=== PATIENT | male | born 1945 | race Caucasian/White ===

== ENCOUNTER 2018-12-07 11:55 | Observation (INO) | payer OTHER ==
[2018-12-07] MEDS ORDERED: dilTIAZem HCl 25 MG/5 ML VIAL IV ONE (12:23)
[2018-12-07 12:32] LABS: Absolute Lymphocytes (CBC) 1.6 K/uL (0.7-4.9); Absolute Monocytes 0.6 K/uL (0.1-1.3); Absolute Neutrophil 4.8 K/uL (1.8-8.0); Basophils % 1.1 % (0-1.3); Eosinophils % 4.7 % (0-4.4); Hematocrit 43.4 % (39.6-49.0); Lymphocytes % 21.7 % (15.3-44.8); MPV 10.6 fL (7.6-11.3); Monocytes % 8.2 % (3.3-12.3); RBC Red Blood Cell Count 4.38 M/uL (4.33-5.43)
[2018-12-07 12:33] LABS: Protime INR 0.89
--- NOTE | 2018-12-07 12:40 | RAD REPORT ---
EXAM DESCRIPTION: RAD - Chest Single View - 12/07/2018 12:34 pm CLINICAL HISTORY: CHEST PAIN Chest pain. COMPARISON: CHEST PA AND LAT 2 VIEW dated 09/13/2013; CHEST PA AND LAT 2 VIEW dated 11/04/2004 FINDINGS: Portable technique limits examination quality. Mild elevation of the left hemidiaphragm is seen with linear atelectasis in left lung base. The lungs are otherwise clear. The heart is mildly prominent size with sternotomy wires present. No displaced fractures. IMPRESSION: No acute intrathoracic process suspected.
[2018-12-07 12:49] LABS: Albumin 3.6 g/dL (3.4-5.0); Bilirubin Direct 0.1 mg/dL (0-0.2); Bilirubin Total 0.7 mg/dL (0.2-1.0); Magnesium 1.7 mg/dL (1.8-2.4); Potassium 4.2 mmol/L (3.5-5.1); Protein, Total 7.1 g/dL (6.4-8.2); Troponin (Emerg Dept Use Only) 0.3 ng/mL (0.0-0.045)
[2018-12-07] MEDS ORDERED: HEPARIN/D5W 25,000 UNIT/500 ML BAG IV ONE (12:53)
--- NOTE | 2018-12-07 13:24 | EKG ---
Test Date: 2018-12-07 Test Time: 12:18:14 Associate Professor Of Library Media: [place]ISH MEASUREMENT RESULTS: Intervals: Rate: 91 [place]: QRSD: 108 QT: 386 QTc: 474 [place]: P: 259 [place]: QRS: 40 T: 152 INTERPRETIVE STATEMENTS: Atrial flutter with variable AV block ST & T wave abnormality, consider lateral ischemia Prolonged QT Abnormal ECG Compared to ECG 12/07/2018 12:15:19 Ventricular premature complex(es) no longer present ST (T wave) deviation still present Possible ischemia still present Electronically Signed On 12-07-18 13:23:42 POSTDOCTORAL SCHOLAR by Benjamin Marsh
--- NOTE | 2018-12-07 13:24 | EKG ---
Test Date: 2018-12-07 Test Time: 12:15:19 Meat Sales And Storage Manager: [place] MEASUREMENT RESULTS: Intervals: Rate: 98 [place]: QRSD: 106 QT: 366 QTc: 467 [place]: P: [place]: QRS: 37 T: 153 INTERPRETIVE STATEMENTS: Atrial flutter with variable AV block with premature ventricular or aberrantly conducted complexes ST & T wave abnormality, consider inferolateral ischemia Prolonged QT Abnormal ECG Compared to ECG 12/07/2018 12:10:47 Ventricular premature complex(es) now present Prolonged QT interval now present ST (T wave) deviation still present Possible ischemia still present Electronically Signed On 12-07-18 13:23:46 NUTRITION HELPER by Benjamin Marsh
--- NOTE | 2018-12-07 13:24 | EKG ---
Test Date: 2018-12-07 Test Time: 12:10:47 Chemical Compounder Helper: [place] MEASUREMENT RESULTS: Intervals: Rate: 113 [place]: QRSD: 102 QT: 352 QTc: 482 [place]: P: [place]: QRS: 35 T: 161 INTERPRETIVE STATEMENTS: Atrial flutter with variable AV block ST & T wave abnormality, consider inferior ischemia ST & T wave abnormality, consider anterolateral ischemia Abnormal ECG Compared to ECG 12/07/2018 12:07:57 ST (T wave) deviation now present Atrial fibrillation no longer present Myocardial infarct finding no longer present T-wave abnormality no longer present Possible ischemia still present Electronically Signed On 12-07-18 13:23:51 MATTRESS STUFFER by Benjamin Marsh
--- NOTE | 2018-12-07 13:25 | EKG ---
Test Date: 2018-12-07 Test Time: 12:07:57 Feather Duster Winder: [place] MEASUREMENT RESULTS: Intervals: Rate: 126 [place]: QRSD: 100 QT: 340 QTc: 492 [place]: P: [place]: QRS: 40 T: 175 INTERPRETIVE STATEMENTS: Atrial flutter Inferior infarct cited previously Consider right ventricular involvement in acute inferior infarct Abnormal ECG Compared to ECG 12/07/2018 12:07:33 T-wave abnormality now present Possible ischemia now present ST (T wave) deviation no longer present Electronically Signed On 12-07-18 13:24:53 SPORTS OFFICIAL by Benjamin Marsh
--- NOTE | 2018-12-07 13:25 | EKG ---
Test Date: 2018-12-07 Test Time: 12:07:33 Supervisor Photoengraving: [place] MEASUREMENT RESULTS: Intervals: Rate: 120 [place]: QRSD: 106 QT: 348 QTc: 491 [place]: P: [place]: QRS: 42 T: 172 INTERPRETIVE STATEMENTS: Atrial flutter with variable AV block ST elevation, consider inferior injury or acute infarct ACUTE CA Consider right ventricular involvement in acute inferior infarct Abnormal ECG Compared to ECG 11/04/2004 13:54:00 ST (T wave) deviation now present Myocardial infarct finding now present Myocardial infarct finding now present Sinus rhythm no longer present T-wave abnormality no longer present Possible ischemia no longer present Electronically Signed On 12-07-18 13:25:00 CHEESE COOKER by Benjamin Marsh
[2018-12-07] MEDS ORDERED: ASPIRIN 81 MG CHEWABLE TABLET ONE (13:28)
--- NOTE | 2018-12-07 13:40 | ER ---
Nurse's Notes [facility] Name: Serafin Beltrán Age: 73 yrs Sex: Male : 1945 Arrival Date: 12/07/2018 Time: 11:57 Bed 4 Private MD: Diagnosis: Chest pain;NSTEMI;Atrial Fibrillation with RVR Presentation: 12/07 12:00 Presenting complaint: Patient states: He was picking up a bag of bird feed an hour and aj1 15 minutes ago when he started to have substernal chest pain that radiates to the back, dizziness, weakness, shortness of breath and palpitations. Denies cough or recent illness. Transition of care: patient was not received from another setting of care. Onset of symptoms was December 07, 2018 at 10:45. Risk Assessment: Do you want to hurt yourself or someone else? Patient reports no desire to harm self or others. Initial Sepsis Screen: Does the patient meet any 2 criteria? HR > 90 bpm. No. Patient's initial sepsis screen is negative. Does the patient have a suspected source of infection? No. Patient's initial sepsis screen is negative. Care prior to arrival: None. 12:00 Method Of Arrival: Wheelchair aj1 12:00 Acuity: CRISTOBAL 2 aj1 Triage Assessment: 12:00 General: Appears in no apparent distress. uncomfortable, Behavior is calm, cooperative, aj1 appropriate for age. Pain: Complains of pain in mid-sternal area. Cardiovascular: Patient's skin is warm and dry. Rhythm is atrial fibrillation with rapid ventricular response. Historical: - Allergies: 12:26 No Known Allergies; aj1 - Home Meds: 12:26 BP med [Active]; gabapentin oral oral [Active]; Celebrex Oral [Active]; aj1 - PMHx: 12:26 Hypertension; neuropathy; double bypass; cardiac stent; aj1 - Immunization history:: Flu vaccine is up to date. - Social history:: Smoking status: Patient/guardian denies using tobacco. - Ebola Screening: : Patient denies travel to an Ebola-affected area in the 21 days before illness onset. Screenin:35 Abuse screen: Denies threats or abuse. Denies injuries from another. Nutritional aj1 screening: No deficits noted. Tuberculosis screening: No symptoms or risk factors identified. 15:13 Fall Risk No fall in past 12 months (0 pts). No secondary diagnosis (0 pts). IV access aj1 (20 points). Ambulatory Aid- None/Bed Rest/Nurse Assist (0 pts). Gait- Normal/Bed Rest/Wheelchair (0 pts) Mental Status- Oriented to own ability (0 pts). Total Catherine Fall Scale indicates No Risk (0-24 pts). Assessment: 12:00 General: Appears in no apparent distress. uncomfortable, Behavior is calm, cooperative, aj1 appropriate for age. 12:00 Pain: Complains of pain in mid-sternal area Pain radiates to back Pain currently is 6 aj1 out of 10 on a pain scale. Quality of pain is described as aching, Pain began 1 hour ago. Pain: Aggravated by increased activity. Neuro: Level of Consciousness is awake, alert, obeys commands, Oriented to person, place, time, situation. Cardiovascular: Reports chest pain, lightheadedness, nausea, palpitations, shortness of breath, Heart tones S1 S2 present Murmur present Patient's skin is warm and dry. Rhythm is atrial fibrillation with rapid ventricular response. Respiratory: Airway is patent Respiratory effort is even, unlabored, Respiratory pattern is regular, symmetrical, Breath sounds are clear bilaterally. GI: No signs and/or symptoms were reported involving the gastrointestinal system. : No signs and/or symptoms were reported regarding the genitourinary system. EENT: No signs and/or symptoms were reported regarding the EENT system. Derm: No signs and/or symptoms reported regarding the dermatologic system. Skin is pink, warm \T\ dry. normal. 12:22 Reassessment: Patient states that he is feeling better, his symptoms have now resolved. aj1 Patient is in Afib with a rate in the 80's and 90's. 13:00 Reassessment: Patient appears in no apparent distress at this time. Patient and/or aj1 family updated on plan of care and expected duration. Pain level reassessed. Patient is alert, oriented x 3, equal unlabored respirations, skin warm/dry/pink. Patient states feeling better. Patient states symptoms have improved. 14:00 Reassessment: Patient and/or family updated on plan of care and expected duration. Pain aj1 level reassessed. General: Appears in no apparent distress. comfortable, Behavior is calm, cooperative, appropriate for age. Pain: Denies pain. Neuro: Level of Consciousness is awake, alert, obeys commands, Oriented to person, place, time, situation. Cardiovascular: Heart tones S1 S2 present Patient's skin is warm and dry. Respiratory: Airway is patent Respiratory effort is even, unlabored, Respiratory pattern is regular, symmetrical. Derm: No signs and/or symptoms reported regarding the dermatologic system. Skin is pink, warm \T\ dry. normal. 15:13 Reassessment: Patient appears in no apparent distress at this time. No changes from aj1 previously documented assessment. Patient and/or family updated on plan of care and expected duration. Pain level reassessed. Patient is alert, oriented x 3, equal unlabored respirations, skin warm/dry/pink. Vital Signs: 12:00 BP 148 / 67; Pulse 130; Resp 22; Temp 97.4; Pulse Ox 97% on R/A; Weight 84.37 kg (R); aj1 Height 5 ft. 10 in. (177.80 cm) (R); Pain 5/10; 12:18 BP 167 / 63; Pulse 91; Resp 18 S; Pulse Ox 98% on R/A; iw 12:35 BP 144 / 60; Pulse 72; Resp 16; Pulse Ox 98% on R/A; aj1 13:00 BP 133 / 53; Pulse 73 MON; Resp 18; Pulse Ox 98% on R/A; aj1 13:31 BP 162 / 56; Pulse 73; Resp 13; Pulse Ox 97% on R/A; aj1 14:00 BP 145 / 50; Pulse 73; Resp 18; Pulse Ox 98% on R/A; aj1 14:30 BP 150 / 62; Pulse 75; Resp 16; Pulse Ox 97% on R/A; aj1 15:09 BP 148 / 46; Pulse 74; Resp 17; Pulse Ox 97% on R/A; aj1 12:00 Body Mass Index 26.69 (84.37 kg, 177.80 cm) aj1 13:00 Sinus Rhythm aj1 13:31 Sinus Rhythm aj1 ED Course: 11:57 Patient arrived in ED. rg4 12:00 Arm band placed on Patient placed in an exam room. aj1 12:03 Junito Aguilar MD is Attending Physician. ps1 12:17 Initial lab(s) drawn, by me, sent to lab. Inserted saline lock: 20 gauge in right hj antecubital area, using aseptic technique. Blood collected. 12:18 Inserted saline lock: 18 gauge in left antecubital area, using aseptic technique. iw 12:22 Eliana Raya, RN is Primary Nurse. aj1 12:22 EKG done, by radio/tv technician. reviewed by Junito Aguilar MD. at1 12:24 Triage completed. aj1 12:33 X-ray completed. Portable x-ray completed in exam room. Patient tolerated procedure jb2 well. 12:35 No provider procedures requiring assistance completed. Patient maintains SpO2 aj1 saturation greater than 95% on room air. 12:35 Patient has correct armband on for positive identification. athletic monitor on. Pulse aj1 ox on. NIBP on. 12:36 XRAY Chest (1 view) In Process Unspecified. EDMS 13:00 EKG done, by radio/tv technician. reviewed by Junito Aguilar MD repeat EKG. at1 13:37 Fritz Dodge DO is Hospitalizing Provider. ps1 15:10 Patient admitted, IV remains in place. aj1 15:13 Report given to DEIDRE Nicole on 4th floor. aj1 Administered Medications: 12:11 Drug: Cardizem 10 mg Route: IVP; Site: right antecubital; aj1 12:22 Follow up: Response: No adverse reaction; Marked relief of symptoms aj1 12:49 Drug: Heparin ([place]-Bolus with thrombolytic) - HEParin 60 units/kg {Co-Signature: aj1 iw (Eliana Raya RN).} Route: IVP; Site: right antecubital; 13:30 Follow up: Response: No adverse reaction aj1 12:49 Drug: Heparin ([place] Drip) 12 units/kg/hr - (HEParin 70657 units, D5W 500 ml) iw {Co-Signature: aj1 (Eliana Raya RN).} Route: IV; Rate: calculated rate; Site: right antecubital; 15:15 Follow up: IV Status: Infusion continued upon admission aj1 13:24 Drug: Aspirin 325 mg Route: PO; aj1 14:30 Follow up: Response: No adverse reaction aj1 Outcome: 13:39 Decision to Hospitalize by Provider. ps1 15:13 Admitted to Tele accompanied by tech, via wheelchair, with chart. aj1 15:13 Condition: stable 15:13 Discharge instructions given to patient, Instructed on the need for admit, Demonstrated understanding of instructions. 15:21 Patient left the ED. aj1 Signatures: Dispatcher [employer] Eliana Salgado, DEIDRE RN aj1 Jaylen Bhakta jb2 Linda Lawrence RN RN iw Hali Fitzgerald, rolls mill operator EKG Tat1 Zeb Lee RN RN hj Garcia, Rubi rg4 Junito Aguilar MD MD ps1 Eliana Raya RN aj1
--- NOTE | 2018-12-07 13:40 | EDPHYS ---
Physician Documentation [facility] Name: Serafin Beltrán Age: 73 yrs Sex: Male : 1945 Arrival Date: 12/07/2018 Time: 11:57 Bed 4 Private MD: ED Physician Junito Aguilar HPI: 12/07 12:19 This 73 yrs old Male presents to ER via Unassigned with complaints of Chest ps1 Pain, Weakness. 12:19 patient was lifting a bag of birdfeed and developed CP, tightness, palpitations, and ps1 SOB. He has a history of CABG and stenting by [facility]. Pain is substernal, Non-radiating. Rated as moderate and improving. No history of afib. . Historical: - Allergies: 12:26 No Known Allergies; aj1 - Home Meds: 12:26 BP med [Active]; gabapentin oral oral [Active]; Celebrex Oral [Active]; aj1 - PMHx: 12:26 Hypertension; neuropathy; double bypass; cardiac stent; aj1 - Immunization history:: Flu vaccine is up to date. - Social history:: Smoking status: Patient/guardian denies using tobacco. - Ebola Screening: : Patient denies travel to an Ebola-affected area in the 21 days before illness onset. ROS: 12:19 Constitutional: Negative for fever, chills, and weight loss, Eyes: Negative for injury, ps1 pain, redness, and discharge. 12:19 Abdomen/GI: Negative for abdominal pain, nausea, vomiting, diarrhea, and constipation, MS/Extremity: Negative for injury and deformity, Skin: Negative for injury, rash, and discoloration, Neuro: Negative for headache, weakness, numbness, tingling, and seizure. 12:19 Cardiovascular: Positive for chest pain, palpitations. 12:19 Respiratory: Positive for shortness of breath. Exam: 12:18 Respiratory: Lungs have equal breath sounds bilaterally, clear to auscultation and ps1 percussion. No rales, rhonchi or wheezes noted. No increased work of breathing, no retractions or nasal flaring. Abdomen/GI: Soft, non-tender, with normal bowel sounds. No distension or tympany. No guarding or rebound. No evidence of tenderness throughout. Skin: Warm, dry with normal turgor. Normal color with no rashes, no lesions, and no evidence of cellulitis. MS/ Extremity: Pulses equal, no cyanosis. Neurovascular intact. Full, normal range of motion. Neuro: Awake and alert, GCS 15, oriented to person, place, time, and situation. Cranial nerves II-XII grossly intact. Sensory grossly intact. Psych: Awake, alert, with orientation to person, place and time. Behavior, mood, and affect are within normal limits. 12:19 Constitutional: This is a well developed, well nourished patient who is awake, alert, ps1 and in no acute distress. Head/Face: Normocephalic, atraumatic. Eyes: Pupils equal round and reactive to light, extra-ocular motions intact. Lids and lashes normal. Conjunctiva and sclera are non-icteric and not injected. 12:19 Chest/axilla: Inspection: scar from midline sternotomy. 12:19 Cardiovascular: Rate: tachycardic, Rhythm: irregularly irregular, Pulses: no pulse deficits are appreciated, Edema: is not appreciated. Vital Signs: 12:00 BP 148 / 67; Pulse 130; Resp 22; Temp 97.4; Pulse Ox 97% on R/A; Weight 84.37 kg (R); aj1 Height 5 ft. 10 in. (177.80 cm) (R); Pain 5/10; 12:18 BP 167 / 63; Pulse 91; Resp 18 S; Pulse Ox 98% on R/A; iw 12:35 BP 144 / 60; Pulse 72; Resp 16; Pulse Ox 98% on R/A; aj1 13:00 BP 133 / 53; Pulse 73 MON; Resp 18; Pulse Ox 98% on R/A; aj1 13:31 BP 162 / 56; Pulse 73; Resp 13; Pulse Ox 97% on R/A; aj1 14:00 BP 145 / 50; Pulse 73; Resp 18; Pulse Ox 98% on R/A; aj1 14:30 BP 150 / 62; Pulse 75; Resp 16; Pulse Ox 97% on R/A; aj1 15:09 BP 148 / 46; Pulse 74; Resp 17; Pulse Ox 97% on R/A; aj1 12:00 Body Mass Index 26.69 (84.37 kg, 177.80 cm) aj1 13:00 Sinus Rhythm aj1 13:31 Sinus Rhythm aj1 MDM: 12:29 Patient medically screened. ps1 13:40 Data reviewed: vital signs, nurses notes, lab test result(s), EKG, radiologic studies, ps1 and as a result, I will admit patient. Data interpreted: cafeteria monitor: rhythm is atrial fibrillation, atrial flutter. Medication response: cardizem, rate controlled. Physician consultation: Benjamin Marsh MD does not want to cath patient at this time. POC to admit patient on heparin and will plan for cardioversion tomorrow. . ED course: Original EKG demonstrated ST elevation in one lead. Patient was in Afib RVR and was slowed with cardizem. Repeat EKG's demonstrated flutter with no ST elevation and non-specific ST changes. Patient was heparinized and given ASA. Stable and rate controlled. Pain improved. Admitted to medicine. 12/07 12:11 Order name: Basic Metabolic Panel; Complete Time: 12:56 ps1 12/07 12:11 Order name: CBC with Diff; Complete Time: 12:37 ps1 12/07 12:11 Order name: LFT's; Complete Time: 12:56 ps1 12/07 12:11 Order name: Magnesium; Complete Time: 12:56 ps1 12/07 12:11 Order name: NT PRO-BNP; Complete Time: 12:56 ps1 12/07 12:11 Order name: PT-INR; Complete Time: 12:41 ps1 12/07 12:11 Order name: Troponin (emerg Dept Use Only); Complete Time: 12:56 ps1 12/07 12:11 Order name: XRAY Chest (1 view); Complete Time: 12:41 ps1 12/07 12:11 Order name: EKG; Complete Time: 12:13 ps1 12/07 13:09 Order name: EKG Electrocardiogram EDWI 12/07 12:11 Order name: Cardiac monitoring; Complete Time: 12:38 ps1 12/07 12:11 Order name: EKG - Nurse/Tech; Complete Time: 12:38 ps1 12/07 12:11 Order name: IV Saline Lock; Complete Time: 12:38 ps1 12/07 12:11 Order name: Labs collected and sent; Complete Time: 12:38 ps1 12/07 12:11 Order name: O2 Per Protocol; Complete Time: 12:38 ps1 12/07 12:11 Order name: O2 Sat Monitoring; Complete Time: 12:38 ps1 12/07 13:09 Order name: EKG Electrocardiogram EDMS 12/07 13:09 Order name: EKG Electrocardiogram EDMS 12/07 13:09 Order name: EKG Electrocardiogram EDMS 12/07 13:47 Order name: NPO EDMS 12/07 13:48 Order name: EKG Electrocardiogram EDMS 12/07 13:48 Order name: EKG Electrocardiogram EDMS 12/07 13:48 Order name: EKG Electrocardiogram EDMS 12/07 13:48 Order name: EKG Electrocardiogram EDMS EC:07 Rate is 126 beats/min. Rhythm is irregularly irregular. QRS [place] is Normal. QRS ps1 interval is normal. QT interval is prolonged. No Q waves. T waves are Normal. ST Segment is elevated in lead II, 1-2mm. ST Segment is depressed in leads V3, V4, V5. Clinical impression: atrial fibrillation with rapid ventricular response. Non-specific ST wave abnormalities. Interpreted by me. 12:18 Rate is 91 beats/min. Rhythm is irregularly irregular. QRS [place] is Normal. QRS interval ps1 is normal. QT interval is normal. No Q waves. T waves are Normal. ST Segment is depressed in lead V3. Clinical impression: Atrial flutter with 2:1. No ST elevation. Non-specific ST changes. . Interpreted by me. Administered Medications: 12:11 Drug: Cardizem 10 mg Route: IVP; Site: right antecubital; aj1 12:22 Follow up: Response: No adverse reaction; Marked relief of symptoms aj1 12:49 Drug: Heparin ([place]-Bolus with thrombolytic) - HEParin 60 units/kg {Co-Signature: aj1 iw (Eliana Raya RN).} Route: IVP; Site: right antecubital; 13:30 Follow up: Response: No adverse reaction aj1 12:49 Drug: Heparin ([place] Drip) 12 units/kg/hr - (HEParin 15567 units, D5W 500 ml) iw {Co-Signature: aj1 (Eliana Raya RN).} Route: IV; Rate: calculated rate; Site: right antecubital; 15:15 Follow up: IV Status: Infusion continued upon admission aj1 13:24 Drug: Aspirin 325 mg Route: PO; aj1 14:30 Follow up: Response: No adverse reaction aj1 Disposition: 13:40 Critical Care:. ps1 Disposition: 12/07/18 13:39 Hospitalization ordered by Fritz Dodge for Inpatient Admission. Preliminary diagnosis are Chest pain, NSTEMI, Atrial Fibrillation with RVR. - Bed requested for Telemetry/MedSurg (Inpatient). - Status is Inpatient Admission. aj1 - Condition is Fair. - Problem is new. - Symptoms have improved. UTI on Admission? No Critical care time excluding procedures: 13:40 Critical care time: Bedside Care: 35 minutes, Consultation: 10 minutes. Total time: 45 ps1 minutes Signatures: Dispatcher [employer] EDMS Elsa Estevez Angela, RN RN aj1 Linda Lawrence RN RN iw Junito Aguilar MD MD ps1 Eliana Raya RN aj1 Corrections: (The following items were deleted from the chart) 14:31 13:39 Hospitalization Ordered by Fritz Dodge DO for Inpatient Admission. Preliminary bd diagnosis is Chest pain; NSTEMI; Atrial Fibrillation with RVR. Bed requested for Telemetry/MedSurg (Inpatient). Status is Inpatient Admission. Condition is Fair. Problem is new. Symptoms have improved. UTI on Admission? No. ps1 15:21 14:31 12/07/2018 13:39 Hospitalization Ordered by Fritz Dodge DO for Inpatient aj1 Admission. Preliminary diagnosis is Chest pain; NSTEMI; Atrial Fibrillation with RVR. Bed requested for Telemetry/MedSurg (Inpatient). Status is Inpatient Admission. Condition is Fair. Problem is new. Symptoms have improved. UTI on Admission? No. bd
--- NOTE | 2018-12-07 14:11 | P.HP ---
Certification for Inpatient Patient admitted to: Inpatient With expected LOS: >2 Midnights Patient will require the following post-hospital care: None Practitioner: I am a practitioner with admitting privileges, knowledge of patient current condition, hospital course, and medical plan of care. Services: Services provided to patient in accordance with Admission requirements found in Title 42 Section 412.3 of the Code of Federal Regulations Patient History Date of Service: 12/07/18 Primary Care Provider: none; Pain management-Dr. Fontaine; Cardiology-Dr. Clarke Reason for admission: Chest pain and shortness of breath History of Present Illness: 73-year-old male presented to the emergency room with chest pain and shortness of breath. Patient reports chest pain and shortness of breath since yesterday. His shortness of breath has been getting worse. It is worse with exertion. He also reported some mild pain with activity to the lower extremities. Chest pain persisted. He came to the ER for further evaluation. Patient with history of CAD with prior stent and CABG, hypertension and peripheral neuropathy. In the ER patient found to be in atrial fibrillation with RVR. Patient was given Cardizem and heparin. Rate much improved. White count 7.5, hemoglobin 14. Platelet count of 222. If sodium 143, potassium 4.2, BUN of 17, creatinine 1.1 with a GFR 63. Glucose 114. Troponin 0.3. BNP 1448. Magnesium 1.7. Patient was admitted for further treatment. When I came to the ER patient was without any chest pain or shortness of breath. Cardiology has evaluated patient and will start sotalol and heparin drip. Allergies No Known Allergies Allergy (Unverified 04/06/12 15:02) Home medications list reviewed: Yes - Past Medical/Surgical History Diabetic: No -: Hypertension -: CAD with prior stent and CABG -: Peripheral neuropathy -: CABG x2 vessels -: Stent placement Psychosocial/ Personal History: Patient is . He has 1 child. Multiple grand children. He previously worked as a boiler repair person - Family History Father -: Cancer (Leukemia) Mother -: Cancer (Melanoma) - Social History Smoking Status: Never smoker Alcohol use: Yes CD- Drugs: No Caffeine use: Yes Place of Residence: Home Review of Systems General: Weakness, As per HPI Eyes: Unremarkable ENT: Unremarkable Respiratory: Shortness of Breath, SOB with Excertion, As per HPI Cardiovascular: Chest Pain, As per HPI Gastrointestinal: Unremarkable Genitourinary: Unremarkable Musculoskeletal: Unremarkable Integumentary: Unremarkable Neurological: Unremarkable Lymphatics: Unremarkable Physical Examination - Physical Exam General: Alert, In no apparent distress, Oriented x3, Cooperative HEENT: Atraumatic, Normocephalic, PERRLA, Mucous membr. moist/pink Neck: Supple Respiratory: Clear to auscultation bilaterally, Normal air movement Cardiovascular: Irregular heart rate/rhythm (Atrial flutter with rate controlled ) Gastrointestinal: Normal bowel sounds, Soft and benign, Non-distended, No tenderness, No masses, No rebound, No guarding Musculoskeletal: No contractures, No erythema, No tenderness, No warmth Integumentary: No tenderness/swelling, No erythema, No warmth, No cyanosis Neurological: Normal speech, Normal strength at 5/5 x4 extr, Normal tone, Normal affect - Studies Laboratory Data (last 24 hrs) 12/07/18 12:15: PT 10.6, INR 0.89 12/07/18 12:15: WBC 7.5, Hgb 14.4, Hct 43.4, Plt Count 222 12/07/18 12:15: Sodium 143, Potassium 4.2, BUN 17, Creatinine 1.14, Glucose 114 H, Magnesium 1.7 L, Total Bilirubin 0.7, AST 23, ALT 21, Alkaline Phosphatase 65 Assessment and Plan - Plan Impression: Chest pain, shortness of breath secondary to new onset atrial fibrillation/ flutter with RVR CAD with prior CABG and stents Hypertension Peripheral neuropathy Plan: Chest pain, shortness of breath secondary to new onset atrial fibrillation/ flutter with RVR: Patient to be admitted for further evaluation. Patient seen and evaluated by Cardiology. Case discussed with cardiology. Cardiology plans to start sotalol 80 mg 1 pill twice daily. Patient will remain on heparin drip. Pharmacy to monitor and adjust. If he does not revert in to normal rhythm patient may require cardioversion tomorrow. Will continue to monitor the patient closely. Monitor cardiac enzymes. Obtain echocardiogram. Await further recommendations from cardiology. CAD with prior CABG and stents: Continue as above. Hypertension: Patient now on sotalol. Peripheral neuropathy: Will continue with his home medication of gabapentin. Will discontinue Celebrex since the patient is on heparin. Discharge Plan: Home Plan to discharge in: 72 Hours - Advance Directives Does patient have a Living Will: Yes Does patient have a Durable POA for Healthcare: Yes - Code Status/Comfort Care Code Status Assessed: Yes (Patient full code) Time Spent Managing Pts Care (In Minutes): 55
[2018-12-07] MEDS ORDERED: HYDROCODONE/APAP 7.5/325 MG TAB PO PRN (15:41)
[2018-12-07] MEDS ORDERED: ACETAMINOPHEN 500 MG TAB PO PRN (15:41)
[2018-12-07] MEDS ORDERED: TRAMADOL HCL 50 MG TAB PO PRN (15:41)
[2018-12-07] MEDS ORDERED: ONDANSETRON 4 MG/2 ML VIAL IV PRN (15:41)
--- NOTE | 2018-12-07 15:41 | CON ---
History Of Present Illness: Mr. Beltrán is 73. He came to the hospital because he was having chest pa in. He had noted the night before, perhaps a couple nights before that his heart was racing and flip -flopping. He has not been diagnosed with atrial fibrillation or flutter before, but his initial EKG showed atrial flutter with a rapid ventricular response, variable ventricular response. He has rece ived Cardizem, and his heart rate has come down. All of his chest pain has resolved. The chest pain started when he tried to lease picker a 35-pound object, it went away a short time after that. EKGs do n ot suggest injury. The patient has a history of bypass surgery in 1997. Sometime around 2009, a tyra nt was placed in one of his blood vessels. Since then, he has had no cardiology followup. We do not really know what medications he takes. He is trying to find that out from us. He is presently on a heparin drip. He has received 1 dose of Cardizem, 1 dose of aspirin. His lab tests indicate there is elevated troponin, it is 0.3. The patient does not use tobacco. He did before he had his bypass surgery. He was on Plavix for a year after the stent, but that was stopped. I believe he has been t aking aspirin. He has no allergies. Physical Examination: General: He appears to be his stated age of 73, alert, oriented, not in distress. Lungs: Clear. Heart: Regular. It is on 75 beats per minute. The atrial flutter is still there, but it is 4:1 con duction. The heart exam otherwise within normal limits. Extremities: Palpable distal pulses, but diminished. Impression: The patient's atrial fibrillation should be treated with full anticoagulation with hepar in and then if that works out okay, we will start a beta-wendy. We will try Betapace. If he is st ill in atrial flutter tomorrow, we will have him ready to do a direct current cardioversion. EDGAR/ANDREINAL Voice ID: [id number] Report ID: [id number]
[2018-12-07 15:51] VITALS: BMI 26.8
[2018-12-07] MEDS: HEPARIN/D5W 25,000 UNIT/500 ML BAG IV SCH (16:14)
[2018-12-07] MEDS: GABAPENTIN 100 MG CAP PO SCH ×2 (16:41→21:10)
[2018-12-07 16:53] LABS: Thyroid Stimulating Hormone 1.38 uIU/mL (0.360-3.740)
[2018-12-07] MEDS ORDERED: MAGNESIUM SULFATE 1 gm IVPB 1 GM/100 ML BAG IV ONE (17:00)
[2018-12-07] MEDS: SOTALOL HCL 80 MG TAB PO SCH (17:15)
[2018-12-07 17:28] LABS: Urine Appearance CLEAR; Urine Bilirubin NEGATIVE (NEG); Urine Blood NEGATIVE (NEG); Urine Color YELLOW; Urine Glucose NEGATIVE (NEG); Urine Protein NEGATIVE (NEG); Urine Specific Gravity 1.015 (1.005-1.030); Urine Urobilinogen 0.2 mg/dL (0.2-1.0)
[2018-12-07 17:32] LABS: Urine Microscopic Reflex NO UMIC
[2018-12-07 20:30] LABS: CKMB Creatine Kinase MB 3.3 ng/mL (0.3-3.6); Troponin I 0.36 ng/mL (0.0-0.045)
[2018-12-07] MEDS: FAMOTIDINE 20 MG TAB PO SCH (21:10)
[2018-12-08 01:33] LABS: CKMB Creatine Kinase MB 3.2 ng/mL (0.3-3.6); Troponin I 0.31 ng/mL (0.0-0.045)
[2018-12-08] MEDS: SOTALOL HCL 80 MG TAB PO SCH (06:00)
[2018-12-08 06:21] LABS: Absolute Lymphocytes (CBC) 1.7 K/uL (0.7-4.9); Absolute Monocytes 0.5 K/uL (0.1-1.3); Absolute Neutrophil 3.7 K/uL (1.8-8.0); Basophils % 0.7 % (0-1.3); Eosinophils % 7.1 % (0-4.4); Hematocrit 38.7 % (39.6-49.0); Lymphocytes % 27.2 % (15.3-44.8); MPV 10.1 fL (7.6-11.3); Monocytes % 7.3 % (3.3-12.3); RBC Red Blood Cell Count 3.89 M/uL (4.33-5.43)
[2018-12-08 06:37] LABS: BUN Blood Urea Nitrogen 15 mg/dL (7-18); Bicarbonate 30 mmol/L (21-32); Glucose Level 107 mg/dL (74-106); HDL Cholesterol 66 mg/dL (40-60); LDL Cholesterol, Calculated 101 (<130); Magnesium 1.9 mg/dL (1.8-2.4); Potassium 4.6 mmol/L (3.5-5.1); Sodium Level 144 mmol/L (136-145)
--- NOTE | 2018-12-08 07:04 | EKG ---
Test Date: 2018-12-07 Test Time: 12:48:39 Certified Adapted Physical Educator: [place] MEASUREMENT RESULTS: Intervals: Rate: 73 CA: QRSD: 118 QT: 402 QTc: 442 [place]: P: 259 CA: QRS: 22 T: 172 INTERPRETIVE STATEMENTS: Atrial flutter with 4:[address] & T wave abnormality, non specific Abnormal ECG Compared to ECG 12/07/2018 12:18:14 Prolonged QT interval no longer present ST (T wave) deviation still present Electronically Signed On 12-08-18 07:03:52 FLUORESCENT LIGHTING MODEL MAKER by Benjamin Marsh
[2018-12-08] MEDS: GABAPENTIN 100 MG CAP PO SCH (08:07)
[2018-12-08] MEDS: FAMOTIDINE 20 MG TAB PO SCH (08:09)
--- NOTE | 2018-12-08 08:43 | EKG ---
Test Date: 2018-12-08 Test Time: 03:24:05 Flowers Salesperson: BEATRIZ MEASUREMENT RESULTS: Intervals: Rate: 69 NC: 200 QRSD: 96 QT: 430 QTc: 460 [place]: P: 27 NC: 200 QRS: 16 T: 150 INTERPRETIVE STATEMENTS: Normal sinus rhythm Left ventricular hypertrophy with repolarization abnormality Abnormal ECG Compared to ECG 12/07/2018 12:48:39 Left ventricular hypertrophy now present Early repolarization now present Atrial flutter no longer present ST (T wave) deviation no longer present Electronically Signed On 12-08-18 08:43:13 MENTAL HEALTH SPECIALIST by Layo Clarke
[2018-12-08] MEDS ORDERED: LOSARTAN POTASSIUM 50 MG TABLET PO SCH (09:00)
[2018-12-08] MEDS: HEPARIN/D5W 25,000 UNIT/500 ML BAG IV SCH (09:26)
--- NOTE | 2018-12-08 10:32 | P.DS ---
Admission Date: 12/07/18 Discharge Date: 12/08/18 Primary Care Provider: none; Pain management-Dr. Fontaine; Cardiology-Dr. Clarke Disposition: ROUTINE DISCHARGE Discharge Condition: GOOD Reason for Admission: Chest pain and shortness of breath Consultations: Cardiology-Dr. Marsh/Dr. Clarke Procedures: CXR: COMPARISON: CHEST PA AND LAT 2 VIEW dated 09/13/2013; CHEST PA AND LAT 2 VIEW dated 11/04/2004 FINDINGS: Portable technique limits examination quality. Mild elevation of the left hemidiaphragm is seen with linear atelectasis in left lung base. The lungs are otherwise clear. The heart is mildly prominent size with sternotomy wires present. No displaced fractures. IMPRESSION: No acute intrathoracic process suspected. Medical Problem List: Chest pain, shortness of breath secondary to new onset atrial fibrillation/ flutter with RVR CAD with prior CABG and stents Hypertension Peripheral neuropathy Brief History of Present Illness: 73-year-old male presented to the emergency room with chest pain and shortness of breath. Patient reports chest pain and shortness of breath since yesterday. His shortness of breath has been getting worse. It is worse with exertion. He also reported some mild pain with activity to the lower extremities. Chest pain persisted. He came to the ER for further evaluation. Patient with history of CAD with prior stent and CABG, hypertension and peripheral neuropathy. In the ER patient found to be in atrial fibrillation with RVR. Patient was given Cardizem and heparin. Rate much improved. White count 7.5, hemoglobin 14. Platelet count of 222. If sodium 143, potassium 4.2, BUN of 17, creatinine 1.1 with a GFR 63. Glucose 114. Troponin 0.3. BNP 1448. Magnesium 1.7. Patient was admitted for further treatment. When I came to the ER patient was without any chest pain or shortness of breath. Cardiology has evaluated patient and will start sotalol and heparin drip. Hospital Course: Patient presented with chest pain and shortness of breath. Patient found to have new onset atrial fibrillation/flutter with RVR. Patient was evaluated in the emergency room and admitted. Patient seen by Cardiology. Patient started on sotalol. Patient has converted to normal sinus rhythm. Patient without complaints. At discharge he will continue with sotalol 80 mg 1 pill twice daily. Patient will also be started on chronic anti coagulation therapy- Xarelto 20 mg daily. Recommend to follow up with cardiology in 1-2 weeks to follow up this hospitalization. Education on atrial fibrillation, Xarelto will be provided. Patient with history of CAD with prior stent and CABG/hypertension. Medications have been adjusted. Patient will no longer take metoprolol. New medication includes losartan. Patient will continue with losartan 100 mg daily along with his atrial fibrillation medication. Recommend to maintain blood pressures less 150/80. Further adjustment can be done by cardiology. Patient with history of peripheral neuropathy. Patient may continue with gabapentin 300 mg 1 pill twice daily. A limited supply of tramadol 50 mg 1 pill 3 times a day as needed for pain will be provided. Recommend to discontinue Celebrex. Recommend no further use of nonsteroidal anti- inflammatories since the patient will be on Xarelto. Recommend to follow up with pain management to further address. Adjustment in gabapentin may be required. Patient will be given contact information to local pain management to further address. Vital Signs/Physical Exam: Temp Pulse Resp BP Pulse Ox 98.3 F 68 20 135/60 95 12/08/18 08:00 12/08/18 08:00 12/08/18 08:00 12/08/18 08:00 12/08/18 08:00 General: Alert, In no apparent distress, Oriented x3, Cooperative HEENT: Atraumatic Neck: Supple Respiratory: Clear to auscultation bilaterally, Normal air movement Cardiovascular: Normal pulses, Regular rate/rhythm Gastrointestinal: Normal bowel sounds, Soft and benign, Non-distended, No tenderness, No masses, No rebound, No guarding Musculoskeletal: No erythema, No tenderness, No warmth Integumentary: No tenderness/swelling, No erythema, No warmth, No cyanosis Neurological: Normal speech, Normal strength at 5/5 x4 extr, Normal tone, Normal affect Laboratory Data at Discharge: WBC 6.3 K/uL (4.3-10.9) D 12/08/18 06:05 Hgb 13.1 g/dL (13.6-17.9) L 12/08/18 06:05 Hct 38.7 % (39.6-49.0) L 12/08/18 06:05 Plt Count 199 K/uL (152-406) 12/08/18 06:05 PT 10.6 SECONDS (9.5-12.5) 12/07/18 12:15 INR 0.89 12/07/18 12:15 APTT 125.7 SECONDS (24.3-36.9) H* 12/08/18 06:05 Sodium 144 mmol/L (136-145) 12/08/18 06:05 Potassium 4.6 mmol/L (3.5-5.1) 12/08/18 06:05 BUN 15 mg/dL (7-18) 12/08/18 06:05 Creatinine 0.65 mg/dL (0.55-1.3) 12/08/18 06:05 Glucose 107 mg/dL (74-106) H 12/08/18 06:05 Magnesium 1.9 mg/dL (1.8-2.4) 12/08/18 06:05 Total Bilirubin 0.7 mg/dL (0.2-1.0) 12/07/18 12:15 AST 23 U/L (15-37) 12/07/18 12:15 ALT 21 U/L (12-78) 12/07/18 12:15 Alkaline Phosphatase 65 U/L (45-117) 12/07/18 12:15 Troponin I 0.31 ng/mL (0.0-0.045) H 12/08/18 00:46 Triglycerides 88 mg/dL (<150) 12/08/18 06:05 Cholesterol 185 mg/dL (<200) 12/08/18 06:05 HDL Cholesterol 66 mg/dL (40-60) H 12/08/18 06:05 Cholesterol/HDL Ratio 2.80 12/08/18 06:05 Home Medications: Gabapentin 300 mg PO TID 12/07/18 Losartan Potassium [Cozaar*] 100 mg PO DAILY #60 tablet 12/08/18 Rivaroxaban [Xarelto] 20 mg PO DAILY #30 tablet 12/08/18 Sotalol HCl [Betapace*] 80 mg PO BID 6AM 6PM #60 tab 12/08/18 traMADol HCL [Ultram*] 50 mg PO TID PRN #10 tab 12/08/18 New Medications: Losartan Potassium [Cozaar*] 100 mg PO DAILY #60 tablet Rivaroxaban [Xarelto] 20 mg PO DAILY #30 tablet Sotalol HCl [Betapace*] 80 mg PO BID 6AM 6PM #60 tab traMADol HCL [Ultram*] 50 mg PO TID PRN #10 tab PRN Reason: Pain Scale 2-4 (Mild) Patient Discharge Instructions: 1. Patient will establish care with a PCP to follow up this hospitalization. 2. Patient presented with chest pain and shortness of breath. Patient found to have new onset atrial fibrillation/ flutter with RVR. Patient was evaluated in the emergency room and admitted. Patient seen by Cardiology. Patient started on sotalol. Patient has converted to normal sinus rhythm. Patient without complaints. At discharge he will continue with sotalol 80 mg 1 pill twice daily. Patient will also be started on chronic anti coagulation therapy-Xarelto 20 mg daily. Recommend to follow up with cardiology in 1-2 weeks to follow up this hospitalization. Education on atrial fibrillation, Xarelto will be provided. 3. Patient with history of CAD with prior stent and CABG/hypertension. Medications have been adjusted. Patient will no longer take metoprolol. New medication includes losartan. Patient will continue with losartan 100 mg daily along with his atrial fibrillation medication. Recommend to maintain blood pressures less 150/80. Further adjustment can be done by cardiology. 4. Patient with history of peripheral neuropathy. Patient may continue with gabapentin 300 mg 1 pill twice daily. A limited supply of tramadol 50 mg 1 pill 3 times a day as needed for pain will be provided. Recommend to discontinue Celebrex. Recommend no further use of nonsteroidal anti-inflammatories since the patient will be on Xarelto. Recommend to follow up with pain management to further address. Adjustment in gabapentin may be required. Patient will be given contact information to local pain management to further address. Diet: AHA Activity: Ad ailyn Time spent managing pt's care (in minutes): 55
--- NOTE | 2018-12-08 11:05 | PN ---
Subjective: Mr. Beltrán is now in sinus rhythm. He has been on sotalol that should continue. Later t bernadine we could stop heparin and start direct oral anticoagulant such as Xarelto. Based on his renal f unction, the dose of Xarelto would be 20 mg once a day at supper time. We should also try to get his blood pressure little bit lower by adding losartan that is what I would recommend. He has elevated troponins. I feel from the atrial fibrillation and doing an outpatient nuclear stress test would be good at some time, but I think later today he could be discharged and follow up and have a stress mindy t in our office. EDGAR/ERIN Voice ID: [id number] Report ID: [id number]
[2018-12-08 11:08] VITALS: O2SAT 97
[2018-12-08 12:56] VITALS: BP 138/52; TEMP 98
--- NOTE | 2018-12-08 14:53 | PN ---
Date of Progress Note: 12/08/2018 Mr. Beltrán is 73, was seen by Dr. Marsh on 12/07/2018 for atrial fibrillation. Today is 12/08/2018. Mr. Beltrán is in normal rhythm today. He was started on Betapace 80 mg 1 p.o. b.i.d. for new onset a trial fibrillation. Mr. Beltrán has had CABG and stent in the past. I will send him home today on Bet apace and Xarelto. He will see me in the office in the next 2 weeks. We will plan to do a stress te st on him as an outpatient. Consider stopping the Xarelto in the next 6 months or so if his atrial f ibrillation resolves. THAI/ERIN Voice ID: [id number] Report ID: [id number]
== END 2018-12-08 12:03 | disposition home or self-care (01) ==
LOC: ER 11:55 → ERHOLD 13:58 → INTOOBSV 13:58 → 4TH 15:09
PROVIDERS: ADMIT Family Medicine; ATTEND Family Medicine
DX: I48.91 Unspecified atrial fibrillation (principal); R07.9 Chest pain, unspecified; I25.10 Atherosclerotic heart disease of native coronary artery without angina pectoris; Z95.1 Presence of aortocoronary bypass graft; Z95.5 Presence of coronary angioplasty implant and graft; I10 Essential (primary) hypertension; G62.9 Polyneuropathy, unspecified
CPT/HCPCS: 36415; 71045; 80048 ×2; 80061; 80076; 81003; 82550 ×2; 82553 ×2; 83735 ×2; 83880; 84439; 84443; 84484 ×3; 85025 ×2; 85610; 85730 ×3; 87088; 93005 ×7; 96365; 96366; 96375; 99285; G0378 ×2; J1644; J3475; 87086